=== PATIENT | male | born 1975 | race Caucasian/White ===

== ENCOUNTER 2019-12-26 23:51 | Emergency (ER) | payer SELFPAY ==
[2019-12-27] MEDS ORDERED: Sodium Chloride 0.9% 10 ML Syringe FLUSH PRN (00:15)
[2019-12-27] MEDS ORDERED: Ondansetron 4 MG/2 ML SDV IVPUSH ONE (00:15)
[2019-12-27] MEDS ORDERED: Sodium Chloride 0.9% 1,000 ML IV SCH (00:15)
[2019-12-27] MEDS ORDERED: HYDROmorphone 1 MG/ML Syringe IVPUSH ONE (00:16)
[2019-12-27] MEDS ORDERED: Ketorolac 30 MG/ML SDV IVPUSH ONE (00:16)
--- NOTE | 2019-12-27 00:40 | EDM.PDOC ---
ED HPI GENERAL MEDICAL PROBLEM - General Chief Complaint: Genitourinary Problem Stated Complaint: POSS KIDNEY STONE Time Seen by Provider: 12/27/19 00:07 Source of Information: Reports: Patient History Limitations: Reports: No Limitations - History of Present Illness INITIAL COMMENTS - FREE TEXT/NARRATIVE: The patient presents with right flank and right abdominal pain. This started yesterday. He has a history of kidney stones. In 2012, he had a stent placed in the right ureter. Last July he had lithotripsy to the right ureter. He drank lots of water yesterday and he felt like he may have passed a kidney stone but no he has more pain. He also has some nausea and vomiting. He has no dysuria or hematuria. He has no fever, chills or cough. Onset: Gradual Duration: Day(s): (Yesterday) Location: Reports: Abdomen, Back Quality: Reports: Sharp Severity: Severe Improves with: Reports: None Worsens with: Reports: None Associated Symptoms: Reports: Nausea/Vomiting. Denies: Chest Pain, Cough, Fever /Chills, Headaches, Shortness of Breath Right Flank Pain Score (Numeric/FACES): 10 - Related Data Allergies Allergy/AdvReac Type Severity Reaction Status Date / Time No Known Allergies Allergy Verified 12/27/19 00:05 Home Meds: Home Meds . [No Known Home Meds] 12/27/19 [History] ED ROS GENERAL - Review of Systems Review Of Systems: See Below Constitutional: Reports: No Symptoms HEENT: Reports: No Symptoms Respiratory: Reports: No Symptoms Cardiovascular: Reports: No Symptoms Endocrine: Reports: No Symptoms GI/Abdominal: Reports: Abdominal Pain, Nausea, Vomiting. Denies: Diarrhea : Reports: Flank Pain (right) ED EXAM, RENAL/ - Physical Exam Exam: See Below Exam Limited By: No Limitations General Appearance: Alert, No Apparent Distress Ears: Normal External Exam Nose: Normal Inspection Head: Atraumatic, Normocephalic Neck: Normal Inspection Respiratory/Chest: No Respiratory Distress, Lungs Clear, Normal Breath Sounds Cardiovascular: Regular Rate, Rhythm, No Edema, No Murmur GI/Abdominal: Soft, Non-Tender, No Organomegaly, No Mass Back Exam: CVA Tenderness (R) Extremities: Normal Inspection Course - Vital Signs Last Recorded V/S: Last Vital Signs Temp 97.4 F 12/27/19 00:00 Pulse 75 12/27/19 00:00 Resp 18 12/27/19 00:00 BP 140/82 12/27/19 00:00 Pulse Ox 95 12/27/19 00:00 - Orders/Labs/Meds Orders: Active Orders 24 hr Category Date Time Status Peripheral IV Care [RC] . DIRECTED Care 12/27/19 00:16 Active Abdomen Pelvis wo Cont [CT] Stat Exams 12/27/19 00:15 Taken Sodium Chloride 0.9% [Normal Saline] 1,000 ml Med 12/27/19 00:15 Active IV ASDIRECTED Sodium Chloride 0.9% [Saline Flush] Med 12/27/19 00:15 Active 10 ml FLUSH ASDIRECTED PRN ED Antiemetic Medication Reflex [OM.PC] Stat Oth 12/27/19 00:15 Ordered Peripheral IV Insertion Adult [OM.PC] Stat Oth 12/27/19 00:15 Ordered Medication Orders Sodium Chloride (Normal Saline) 1,000 mls @ 125 mls/hr IV ASDIRECTED JANICE Last Admin: 12/27/19 00:24 Dose: 125 mls/hr Sodium Chloride (Saline Flush) 10 ml FLUSH ASDIRECTED PRN PRN Reason: Keep Vein Open Last Admin: 12/27/19 00:25 Dose: 10 ml Labs: Laboratory Tests 12/27/19 12/27/19 12/27/19 Range/Units 00:16 00:16 01:52 WBC 13.07 H (4.23-9.07) K/mm3 RBC 4.69 (4.63-6.08) M/mm3 Hgb 14.1 (13.7-17.5) gm/dl Hct 40.9 (40.1-51.0) % MCV 87.2 (79.0-92.2) fl MCH 30.1 (25.7-32.2) pg MCHC 34.5 (32.2-35.5) g/dl RDW Std Deviation 39.8 (35.1-43.9) fL Plt Count 193 (163-337) K/mm3 MPV 10.5 (9.4-12.3) fl Neut % (Auto) 83.4 H (34.0-67.9) % Lymph % (Auto) 8.1 L (21.8-53.1) % Jennings % (Auto) 8.1 (5.3-12.2) % Eos % (Auto) 0.1 L (0.8-7.0) Baso % (Auto) 0.2 (0.1-1.2) % Neut # (Auto) 10.91 H (1.78-5.38) K/mm3 Lymph # (Auto) 1.06 L (1.32-3.57) K/mm3 Jennings # (Auto) 1.06 H (0.30-0.82) K/mm3 Eos # (Auto) 0.01 L (0.04-0.54) K/mm3 Baso # (Auto) 0.02 (0.01-0.08) K/mm3 Manual Slide Review Abnormal smear Sodium 138 (136-145) mEq/L Potassium 4.0 (3.5-5.1) mEq/L Chloride 103 (98-107) mEq/L Carbon Dioxide 25 (21-32) mEq/L Anion Gap 14.0 (5-15) BUN 23 H (7-18) mg/dL Creatinine 1.6 H (0.7-1.3) mg/dL Est Cr Clr Drug Dosing 69.68 mL/min Estimated GFR (MDRD) 47 (>60) mL/min BUN/Creatinine Ratio 14.4 (14-18) Glucose 116 H (74-106) mg/dL Calcium 9.5 (8.5-10.1) mg/dL Total Bilirubin 1.3 H (0.2-1.0) mg/dL AST 24 (15-37) U/L ALT 39 (16-63) U/L Alkaline Phosphatase 55 (46-116) U/L Total Protein 7.5 (6.4-8.2) g/dl Albumin 4.4 (3.4-5.0) g/dl Globulin 3.1 gm/dL Albumin/Globulin Ratio 1.4 (1-2) Lipase 128 (73-393) U/L Urine Color Yellow (Yellow) Urine Appearance Clear (Clear) Urine pH 6.5 (5.0-8.0) Ur Specific [place] 1.025 (1.005-1.030) Urine Protein 1+ H (Negative) Urine Glucose (UA) Negative (Negative) Urine Ketones 2+ H (Negative) Urine Occult Blood 3+ H (Negative) Urine Nitrite Negative (Negative) Urine Bilirubin Negative (Negative) Urine Urobilinogen 0.2 (0.2-1.0) Ur Leukocyte Esterase Negative (Negative) Urine RBC 10-20 H (0-5) /hpf Urine WBC 0-5 (0-5) /hpf Ur Squamous Epith Cells 0-5 (0-5) /hpf Urine Bacteria Rare (FEW) /hpf Urine Mucus Few (FEW) /hpf Meds: Medications Generic Name Dose Route Start Last Admin Trade Name Freq PRN Reason Stop Dose Admin Sodium Chloride 1,000 mls @ 125 mls/hr 12/27/19 00:15 12/27/19 00:24 Normal Saline IV 125 mls/hr ASDIRECTED JANICE Administration Sodium Chloride 10 ml 12/27/19 00:15 12/27/19 00:25 Saline Flush FLUSH 10 ml ASDIRECTED PRN Administration Keep Vein Open Discontinued Medications Generic Name Dose Route Start Last Admin Trade Name Freq PRN Reason Stop Dose Admin Hydromorphone HCl 1 mg 12/27/19 00:16 12/27/19 00:26 Dilaudid IVPUSH 12/27/19 00:17 1 mg ONETIME ONE Administration Ketorolac Tromethamine 30 mg 12/27/19 00:16 12/27/19 00:27 Toradol IVPUSH 12/27/19 00:17 30 mg ONETIME ONE Administration Ondansetron HCl 4 mg 12/27/19 00:15 12/27/19 00:24 Zofran IVPUSH 12/27/19 00:16 4 mg ONETIME ONE Administration Tamsulosin HCl 0.4 mg 12/27/19 01:49 12/27/19 01:53 Flomax PO 12/27/19 01:50 0.4 mg ONETIME ONE Administration - Re-Assessments/Exams Free Text/Narrative Re-Assessment/Exam: 12/27/19 00:39 I ordered an IV NS at 125mL/hr, zofran 4mg IV, toradol 30mg IV, dilaudid 1mg IV , labs, UA and a CT of his abdomen and pelvis without contrast to look for a kidney stone. 12/27/19 01:46 His WBC was elevated at 13.07. His creatinine is elevated at 1.6. His lipase is normal. His CT shows moderate right hydroureteronephrosis with a [id number] ureteral calculus at the level of the right pelvis. Multiple left sided upper collecting system nonobstructive calculi. I am waiting on his US now. I will give him flomax here and a prescription for more and something for pain and I will have follow up with urology. 12/27/19 02:15 His UA looks good. Departure - Departure Time of Disposition: 14:20 Disposition: Home, Self-Care 01 Condition: Good Clinical Impression: Ureteral calculus, right, Ureteral colic, Kidney stone on right side - Discharge Information *PRESCRIPTION DRUG MONITORING PROGRAM REVIEWED*: No *COPY OF PRESCRIPTION DRUG MONITORING REPORT IN PATIENT KARI: No Referrals: PCP,None [Primary Care Provider] - Speedy Willis MD [Ordering Only Provider] - 1 Week Forms: ED Department Discharge Additional Instructions: Drink plenty of fluids. Take flomax daily. Take tylenol or motrin for pain. If that does not help, try the hydrocodone for pain. Follow up with Dr Willis or one of his partners within a week. Please return if you are worse. Sepsis Event Note - Evaluation Sepsis Screening Result: No Definite Risk - Focused Exam Vital Signs: Vital Signs Temp Pulse Resp BP Pulse Ox 12/27/19 00:00 97.4 F 75 18 140/82 95 Date Exam was Performed: 12/27/19 Time Exam was Performed: 02:15 - My Orders Last 24 Hours: My Active Orders 12/27/19 00:15 Abdomen Pelvis wo Cont [CT] Stat Sodium Chloride 0.9% [Normal Saline] 1,000 ml IV ASDIRECTED Sodium Chloride 0.9% [Saline Flush] 10 ml FLUSH ASDIRECTED PRN ED Antiemetic Medication Reflex [OM.PC] Stat Peripheral IV Insertion Adult [OM.PC] Stat 12/27/19 00:16 Peripheral IV Care [RC] . DIRECTED - Assessment/Plan Last 24 Hours: My Active Orders 12/27/19 00:15 Abdomen Pelvis wo Cont [CT] Stat Sodium Chloride 0.9% [Normal Saline] 1,000 ml IV ASDIRECTED Sodium Chloride 0.9% [Saline Flush] 10 ml FLUSH ASDIRECTED PRN ED Antiemetic Medication Reflex [OM.PC] Stat Peripheral IV Insertion Adult [OM.PC] Stat 12/27/19 00:16 Peripheral IV Care [RC] . DIRECTED
[2019-12-27] MEDS ORDERED: Tamsulosin 0.4 MG Cap.ER PO ONE (01:49)
--- NOTE | 2019-12-27 07:36 | CT ---
CT abdomen and pelvis Technique: Multiple axial sections were obtained from slightly below the dome of the diaphragm inferiorly through the pubic symphysis. Intravenous and oral contrast not utilized. Study has been performed as a ureteral stone protocol. Comparison: No prior abdominal imaging. 8 mm obstructing calculus is noted within the mid to distal right ureter occurring at the mid pelvic level. This causes proximal dilatation of the right ureter as well as dilatation of the right kidney collecting system and mild inflammatory change around the right kidney. Multiple nonobstructing calculi are seen within the left kidney. Largest nonobstructing stone measures 4.7 mm. Visualized lung bases show nothing acute. Liver shows decreased density compatible with fatty infiltration. No focal abnormality is appreciated within the visualized liver. Spleen appears within normal limits. Adrenal glands show no nodule. Pancreas is within normal limits. Gallbladder contains no calcified gallstones. Aorta shows no aneurysm. No retroperitoneal adenopathy or mesenteric abnormalities are seen. Slight diverticulosis is seen without diverticulitis. No free fluid or inflammatory change is seen. Appendix is seen which is normal in size. Bone window settings were reviewed which show slight degenerative change within the spine. No acute osseous finding is appreciated. Impression: 1. 8 mm obstructing calculus within the mid to distal right ureter at the mid pelvic level. This causes proximal hydronephrosis. 2. Nonobstructing calculi within the left kidney. 3. Fatty infiltration within the liver. 4. Other findings as noted above believed to be nonacute and incidental. Diagnostic code #3 This report was dictated in MDT I agree with preliminary report issued by Lisa ([facility] report finalized on 12/27/19, 1:59 AM Central Time)
== END 2019-12-27 02:44 | disposition home or self-care (01) ==
LOC: JD.ED 23:51
DX: N13.2 Hydronephrosis with renal and ureteral calculous obstruction (principal)
CPT/HCPCS: 36415; 74176; 80053; 81001; 83690; 85025; 96361; 96374; 96375; 99284; A9270; J1170; J1885; J2405; J7030; 99283